=== PATIENT | female | born 1950 | race African-American/Black ===

== ENCOUNTER 2017-08-27 04:09 | Emergency (ER) | payer BC ==
[~2017-08-27] VITALS: Ht 152.4 cm; Wt 103.3 kg
[2017-08-27 04:45] LABS: BASOPHIL (%) 0.7 % (0-1); EOSINOPHIL (%) 3.6 % (0-5); EOSINOPHIL COUNT 0.2 K/uL (0-0.3); HEMATOCRIT 37.9 % (36.0-46.0); HEMOGLOBIN 12.7 G/DL (11.9-15.5); IMMATURE GRANULOCYTE (%) 0.2 % (0.0-0.7); LYMPHOCYTE (%) 32.2 % (15-42); LYMPHOCYTE COUNT 1.4 K/uL (1.0-2.8); MCH 31.6 PG (29.0-34.0); MCHC 33.5 G/DL (30.0-36.0); MCV 94.3 FL (83-99); MONOCYTE (%) 12.1 % (3-12); MONOCYTE COUNT 0.5 K/uL (0-0.8); NEUTROPHIL (%) 51.2 % (45-76); NEUTROPHIL COUNT 2.2 K/uL (1.8-6.4); PLATELET COUNT 222 K/uL (156-360); RBC DIS.WIDTH-CV 12.5 % (11.8-14.6); RBC DIS.WIDTH-SD 43.5 % (39-53); RED BLOOD COUNT 4.02 M/uL (3.80-5.20); WHITE BLOOD COUNT 4.2 K/uL (4.1-10.2)
[2017-08-27 04:58] LABS: CHLORIDE 109 mEq/L (99-109); POTASSIUM 4.3 mEq/L (3.7-5.4); SODIUM 138 mEq/L (136-147)
[2017-08-27 05:00] LABS: GLUCOSE 108 mg/dL (70-99)
[2017-08-27 05:04] LABS: CREATININE 0.8 mg/dL (0.6-1.3); GFR ESTIMATE (CALCULATED) > 59 mL/min/
[2017-08-27 05:05] LABS: UREA NITROGEN (BUN) 19 mg/dL (9-23)
[2017-08-27 05:08] LABS: TROP-I INTERPRETATION NEGATIVE; TROPONIN-I 0.01 ng/mL (0.0-0.30)
[2017-08-27] MEDS ORDERED: TYLENOL WITH C1 EACH PO (05:59)
[2017-08-27] MEDS ORDERED: MOTRIN600 MG PO (05:59)
[2017-08-27 06:20] VITALS: BP 120/56
== END 2017-08-27 06:22 | disposition home or self-care (01) ==
LOC: EME 04:09
PROVIDERS: Emergency Medicine
DX: J06.9 Acute upper respiratory infection, unspecified (principal); J20.9 Acute bronchitis, unspecified
CPT/HCPCS: 71046; 80048; 84484; 85025; 87502; 93005; 94640; 99281; 99284; J1100